=== PATIENT | male | born 1945 | race Two or more races ===

== ENCOUNTER → 2019-02-06 | Outpatient (CLI) | payer OTHER | END | disposition home or self-care (01) | LOC: XY 09:18 | DX: E05.90 Thyrotoxicosis, unspecified without thyrotoxic crisis or storm (principal) | CPT/HCPCS: 78014; A9516 ==

== ENCOUNTER 2019-11-29 12:26 | Inpatient (IN) | payer OTHER ==
[~2019-11-29] VITALS: Ht 162.6 cm; Wt 78.4 kg
[2019-11-29 14:18] LABS: Basophils # (auto) 0 10 ^3/uL (0-0.2); Basophils % (auto) 0.4 % (0.0-2.0); Eosinophils # (auto) 0.1 10 ^3/uL (0-0.8); Eosinophils % (auto) 0.6 % (0.0-7.0); Hematocrit 38.8 % (41.0-53.0); Hemoglobin 13.2 g/dL (13.5-17.5); Lymphocytes # (auto) 0.9 10 ^3/uL (0.4-5.4); Lymphocytes % (auto) 11.5 % (10.0-50.0); Mean Corpuscular Hgb Conc. 34.1 g/dL (32.0-36.0); Monocytes # (auto) 0.7 10 ^3/uL (0-1.3); Neutrophils # (auto) 6.5 10 ^3/uL (1.6-8.6); Neutrophils % (auto) 79.5 % (37.0-80.0); Nucleated Red Blood Cells % 0.1 %; Platelet Count (auto) 218 10^3/uL (140-450); Red Blood Cells 4.56 10^6/uL (4.5-5.90); Red Cell Distribution Width 13.2 % (11.8-14.3); White Blood Cell 8.2 10^3/uL (4.4-10.8)
[2019-11-29 14:32] LABS: INR 1.06 (0.9-1.15); Partial Thromboplastin Time 27.7 sec (23.64-32.05)
[2019-11-29 14:34] LABS: Albumin 3.4 g/dL (3.4-5.0); Anion Gap 7 (5-15); Blood Urea Nitrogen 45 mg/dL (7-18); Calcium 8.3 mg/dL (8.5-10.1); Carbon Dioxide 26 mmol/L (21-32); Chloride 105 mmol/L (98-107); Glucose 138 mg/dL (74-106); Potassium 3.3 mmol/L (3.5-5.1); Sodium 138 mmol/L (136-145)
[2019-11-29 14:44] LABS: Alanine Aminotransferase 21 U/L (16-61); Alkaline Phosphatase 127 U/L (45-117); Aspartate Aminotransferase 21 U/L (15-37); BUN/Creatinine Ratio 16.9; Bilirubin, Total 0.4 mg/dL (0.2-1.0); GFR African American 30 mL/min; GFR Non-African American 25 mL/min; Total Protein 7.9 g/dL (6.4-8.2)
[2019-11-29] MEDS ORDERED: SODIUM CHLORIDE 0.9% 1,000 ML IV ONE (15:15)
[2019-11-29] MEDS ORDERED: ACETAMINOPHEN 325 MG TAB PO PRN (16:00)
[2019-11-29] MEDS ORDERED: DEXTROSE (50%) 50ML SYRG IV PRN (16:00)
[2019-11-29] MEDS ORDERED: NITROGLYCERIN 0.4 MG SL TAB SL PRN (16:00)
[2019-11-29] MEDS ORDERED: MORPHINE SULF INJ 2 MG/ML SYRINGE 1ML IV PRN (16:00)
[2019-11-29] MEDS: cefTRIAXone 1GM/50ML D5W 50 ML IV SCH (16:28)
[2019-11-29 16:34] LABS: Urine Bacteria NONE SEEN /hpf (None Seen); Urine Blood Negative /uL (Negative); Urine Specific Gravity 1.009 (1.001-1.035); Urine WBC <1 /hpf (0 - 3)
[2019-11-29] MEDS: ACCU-CHEK COMFORT CURVE STRIP VI SCH ×2 (16:36→23:13)
[2019-11-29] MEDS: InsuLIN REG 1unit/0.01ml Soln (100units/ml) SC SCH ×2 (16:37→23:20)
[2019-11-29 19:43] LABS: Protein, Urine 204.7 mg/dL (0.0-11.9)
--- NOTE | 2019-11-29 21:59 | NUR ---
MS admit from ER DAYANA RANDALL ,ROYAL admitted to tele/MS after SBAR received. Patient oriented to CHRISTIANA FELDER, RN primary RN, unit, room, bed, and unit policies regarding patient care and visiting hours. Patient weighed by bed scale and encouraged to call for help as needed. All questions and concerns addressed, patient verbalized understanding. Note: []
[2019-11-30 02:15] VITALS: BP 167/91
[2019-11-30 05:00] VITALS: BP 161/84
[2019-11-30] MEDS: ACCU-CHEK COMFORT CURVE STRIP VI SCH ×4 (06:14→22:47)
[2019-11-30 06:26] LABS: Potassium 3.5 mmol/L (3.5-5.1)
[2019-11-30] MEDS: InsuLIN REG 1unit/0.01ml Soln (100units/ml) SC SCH ×4 (06:27→22:47)
[2019-11-30 06:34] LABS: Albumin 3.1 g/dL (3.4-5.0); BUN/Creatinine Ratio 17.2; Bilirubin, Total 0.3 mg/dL (0.2-1.0); Calcium 8.2 mg/dL (8.5-10.1); Total Protein 7.4 g/dL (6.4-8.2)
[2019-11-30] MEDS ORDERED: ATEN50TA PO (06:53)
[2019-11-30] MEDS ORDERED: LEVO125T7 PO (06:53)
[2019-11-30] MEDS ORDERED: AMLO5TAB15 PO (06:53)
[2019-11-30] MEDS ORDERED: FURO20TA3 PO (06:53)
--- NOTE | 2019-11-30 08:10 | NUR ---
RT NOTE: WENT TO PTS ROOM TO ASSESS SPO2, PT WAS ON RA, SPO2 96%, RR 18, HR 66, PT IN NO DISTRESS AT THIS TIME. WILL CONTINUE TO MONITOR PT.
[2019-11-30 08:59] VITALS: BP 190/99
[2019-11-30] MEDS: cefTRIAXone 1GM/50ML D5W 50 ML IV SCH (09:28)
[2019-11-30] MEDS: ENOXAPARIN SOD 30 MG/0.3 ML SYRINGE SC SCH (09:29)
[2019-11-30] MEDS ORDERED: amLODIPine BESYLATE 5 MG TAB PO SCH (10:00)
[2019-11-30] MEDS ORDERED: LISINOPRIL 5 MG TAB PO SCH (10:00)
[2019-11-30] MEDS ORDERED: AZITHROMYCIN 250 MG TAB PO SCH (10:00)
[2019-11-30 12:56] VITALS: BP 166/87
[2019-11-30] MEDS ORDERED: SOD CHL 0.45% 1,000 ML IV SCH (13:15)
--- NOTE | 2019-11-30 14:35 | NUR ---
Transfer to [place] Gave report to JANAE Rivas. Patient had all scheduled medications. Informed RN of new order for 1/2 NS. Patient was taken to antiroom with all personal belongings and security guards at his side. Patient walked, very steady.
[2019-11-30] MEDS: amLODIPine BESYLATE 5 MG TAB PO SCH (14:36)
--- NOTE | 2019-11-30 14:40 | NUR ---
Received patient from [facility]. Patient awake, oriented x4, speaks [place]. Two male guards at bedside.
[2019-11-30 16:50] VITALS: BP 151/83
[2019-11-30] MEDS: SOD CHL 0.45% 1,000 ML IV SCH (18:15)
--- NOTE | 2019-11-30 19:44 | NUR ---
Opening Shift Note Received report and assumed care of patient. Patient is awake and alert. No signs or symptoms of distress noted, patient currently denies pain. Instructed patient on plan of care and to call for assistance as needed. Guards at bedside. Will continue to monitor.
--- NOTE | 2019-11-30 21:50 | NUR ---
IV removal/insertion 20g IV to the Left AC leaking. Discontinued IV with clean technique, catheter tip fully intact. Pressure dressing applied to site. NOTE: Inserted 22g IV to the Right forearm. Patient tolerated well.
[2019-12-01] MEDS: SOD CHL 0.45% 1,000 ML IV SCH ×3 (04:18→22:06)
[2019-12-01 05:00] VITALS: BP 159/89
[2019-12-01 06:01] LABS: Potassium 3.2 mmol/L (3.5-5.1)
[2019-12-01 06:19] LABS: Albumin 2.9 g/dL (3.4-5.0); BUN/Creatinine Ratio 16.9; Bilirubin, Total 0.3 mg/dL (0.2-1.0); Total Protein 7.1 g/dL (6.4-8.2)
[2019-12-01] MEDS: ACCU-CHEK COMFORT CURVE STRIP VI SCH ×4 (07:08→22:01)
[2019-12-01] MEDS: InsuLIN REG 1unit/0.01ml Soln (100units/ml) SC SCH ×4 (07:09→22:02)
--- NOTE | 2019-12-01 08:00 | NUR ---
Morning note Patient resting in bed with even and unlabored respirations, no distress noted. Instructed patient on POC, fall precautions and to call for assistance as needed. Patient verbalized understanding. Patient denied needing translation for instructions and education. Fall precautions in place with call light within reach. Guards at bedside.
[2019-12-01 09:00] VITALS: BP 146/90
[2019-12-01] MEDS: ENOXAPARIN SOD 30 MG/0.3 ML SYRINGE SC SCH (09:35)
[2019-12-01] MEDS: amLODIPine BESYLATE 5 MG TAB PO SCH (09:36)
[2019-12-01 13:00] VITALS: BP 155/88
--- NOTE | 2019-12-01 14:45 | NUR ---
RE: potassium level Notified Dr. Pollard on low potassium level. MD verbalized understanding. Continue to monitor. Notified MD of patient's elevated BP. MD verbalized understanding. MD to place orders.
[2019-12-01 17:00] VITALS: BP 155/85
--- NOTE | 2019-12-01 17:11 | NUR ---
Patient resting in bed with even and unlabored respirations, no distress noted. Call light within reach. Guards at bedside.
--- NOTE | 2019-12-01 18:48 | NUR ---
Closing note Patient resting in bed with even and unlabored respirations, no distress noted. Fall precautions in place with call light within reach. Guards at bedside.
--- NOTE | 2019-12-01 19:13 | NUR ---
Care endorsed to JANAE Tanner.
--- NOTE | 2019-12-01 20:00 | NUR ---
Opening Shift Note Assumed care of patient, awake and alert. No S/S of distress/SOB or pain. Instructed on POC and to call for assist PRN, will continue to monitor for changes Q1hr and PRN.Inmate.
[2019-12-01 22:00] VITALS: BP 158/86
--- NOTE | 2019-12-02 00:10 | NUR ---
Patient called said his blood sugar is low asking sweets, checked Accucheck its 202.
[2019-12-02 05:00] VITALS: BP 158/91
[2019-12-02 05:40] LABS: Potassium 3.5 mmol/L (3.5-5.1)
[2019-12-02 05:53] LABS: Albumin 2.8 g/dL (3.4-5.0); BUN/Creatinine Ratio 15.3; Bilirubin, Total 0.3 mg/dL (0.2-1.0); Total Protein 7.1 g/dL (6.4-8.2)
[2019-12-02] MEDS: InsuLIN REG 1unit/0.01ml Soln (100units/ml) SC SCH ×4 (06:21→21:32)
[2019-12-02] MEDS: ACCU-CHEK COMFORT CURVE STRIP VI SCH ×4 (06:21→21:32)
--- NOTE | 2019-12-02 07:25 | NUR ---
Report given to Ryanne Leo, patient is resting no distress.
[2019-12-02] MEDS ORDERED: METOPROLOL SUCCINATE XL 50 MG TAB PO SCH ×2 (10:00)
[2019-12-02] MEDS: amLODIPine BESYLATE 5 MG TAB PO SCH (10:27)
[2019-12-02] MEDS: ENOXAPARIN SOD 30 MG/0.3 ML SYRINGE SC SCH (10:28)
--- NOTE | 2019-12-02 10:31 | NUR ---
RE: Metoprolol medication Metoprolol held due to patient receiving 25mg PO at 0930. Received one time dose to equal ordered 50mg. Order read back to verify.
[2019-12-02] MEDS ORDERED: METOPROLOL SUCCINATE XL 50 MG TAB PO ONE (10:45)
[2019-12-02 13:09] VITALS: BP 156/94
[2019-12-02 17:00] VITALS: BP 147/80
--- NOTE | 2019-12-02 18:34 | NUR ---
Closing note Patient resting in bed with even and unlabored respirations, no distress noted. Fall precautions in place with call light within reach. Guards at bedside.
--- NOTE | 2019-12-02 19:00 | NUR ---
Care endorsed to JANAE Segundo.
--- NOTE | 2019-12-02 19:05 | NUR ---
Opening Shift Note Assumed care of patient, awake and alert. No S/S of distress/SOB or pain. Instructed on POC and to call for assist PRN, will continue to monitor for changes Q1hr and PRN. Bed locked in lowest position, side rails up x 2, HOB elevated at least 30 degrees and call light is within reach. Addendum: 12/03/19 at 0009 by DANIELLE HIGH RN RN GUARD PRESENT AT BEDSIDE.
[2019-12-02 20:00] VITALS: BP 157/97
[2019-12-03 05:00] VITALS: BP 156/93
[2019-12-03] MEDS: InsuLIN REG 1unit/0.01ml Soln (100units/ml) SC SCH ×3 (06:30→17:00)
[2019-12-03] MEDS: ACCU-CHEK COMFORT CURVE STRIP VI SCH ×3 (06:30→17:00)
--- NOTE | 2019-12-03 07:36 | NUR ---
CLOSING NOTE ENDORSED CARE OF PATIENT TO DAY SHIFT RN
[2019-12-03 09:00] VITALS: BP 156/90
[2019-12-03] MEDS: ENOXAPARIN SOD 30 MG/0.3 ML SYRINGE SC SCH (10:00)
[2019-12-03] MEDS ORDERED: METOPROLOL SUCCINATE XL 50 MG TAB PO SCH (10:00)
[2019-12-03] MEDS: amLODIPine BESYLATE 5 MG TAB PO SCH (10:00)
[2019-12-03 10:50] LABS: Hepatitis B Surface Antigen Negative (Negative)
[2019-12-03 10:51] LABS: Hepatitis C Antibody Negative (Negative)
[2019-12-03 10:55] LABS: Albumin 2.9 g/dL (3.4-5.0); Calcium 8.2 mg/dL (8.5-10.1); Potassium 3.7 mmol/L (3.5-5.1)
[2019-12-03 10:59] LABS: BUN/Creatinine Ratio 14.7; Bilirubin, Total 0.4 mg/dL (0.2-1.0); Total Protein 7.2 g/dL (6.4-8.2)
--- NOTE | 2019-12-03 11:46 | NUR ---
Nutrition Assessment Notes please see attached link for complete assessment Est Energy needs BW 78 [id number] kcals (23-25 kcal/kgBW), Est Protein needs: 58-62 gms/day (0.75-0.8 gm/kgBW r/t elev RFT). Will continue to monitor and reassess prn. Addendum: 12/03/19 at [address] Amended: Links added.
[2019-12-03 13:00] VITALS: BP 151/86
[2019-12-03 17:00] VITALS: BP 155/84
[2019-12-03 18:27] VITALS: BP 155/84
== END 2019-12-03 20:50 | DRG 177 ==
LOC: EEVIPCON 12:26 → ER 12:26 → OVERFLOW 12:27 → EAST 21:50 → CENTRAL 11-30 14:16
PROVIDERS: ADMIT Internal Medicine; ATTEND Internal Medicine
DX: U07.1 COVID-19 (principal); N17.0 Acute kidney failure with tubular necrosis; I50.43 Acute on chronic combined systolic (congestive) and diastolic (congestive) heart failure; I13.0 Hypertensive heart and chronic kidney disease with heart failure and stage 1 through stage 4 chronic kidney disease, or unspecified chronic kidney disease; N18.9 Chronic kidney disease, unspecified; E87.6 Hypokalemia; R80.9 Proteinuria, unspecified; E11.22 Type 2 diabetes mellitus with diabetic chronic kidney disease; Z79.899 Other long term (current) drug therapy
CPT/HCPCS: 36415; 71045; 76775; 80053; 81001; 82088; 82306; 82570; 82784; 82962; 83036; 83520; 83735; 83880; 83970; 84100; 84156; 84244; 84300; 84484; 84550; 85025; 85610; 85730; 86038; 86160; 86256; 86334; 86335; 86803; 87040; 87081; 87340; G0378; J0696; J1815